=== PATIENT | female | born 1995 | race Hispanic/Latino ===

== ENCOUNTER 2018-07-23 14:10 | Observation (INO) | payer MEDICAID ==
[~2018-07-23] VITALS: Ht 157.5 cm; Wt 78.0 kg
[2018-07-23 14:59] LABS: BASOPHILS % (AUTO) 0.9 % (0.0-5.0); HEMATOCRIT 36.3 % (36-48); LYMPHOCYTES % (AUTO) 14.8 % (21.0-51.0); MEAN CORPUSCULAR HGB CONC 33.8 g/dL (32.0-36.0); MEAN CORPUSCULAR VOLUME 88.7 fL (79-99); MONOCYTES % (AUTO) 7.8 % (3.0-13.0); NEUTROPHILS % (AUTO) 75.5 % (40.0-77.0); PLATELET COUNT (AUTO) 294 K/uL (130-400); RED BLOOD CELL COUNT(AUTO) 4.09 MIL/uL (4.00-5.50); RED CELL DISTRIBUTION WIDTH 14.2 % (11.0-15.5); WHITE BLOOD COUNT (AUTO) 9.7 K/uL (4.8-10.8)
[2018-07-23 15:06] LABS: APPEARANCE,URINE Clear (CLEAR); BILIRUBIN,URINE Negative (NEGATIVE); COLOR,URINE Yellow (YELLOW); GLUCOSE, URINE (UA) Negative (NEGATIVE); KETONES,URINE Negative (NEGATIVE); LEUKOCYTE ESTERASE ,URINE Moderate (NEGATIVE); NITRATE,URINE Negative (NEGATIVE); OCCULT BLOOD,URINE Negative (NEGATIVE); PROTEIN,URINE POS 2+ (NEGATIVE)
[2018-07-23 15:09] LABS: INR 0.85 (0.85-1.15); PARTIAL THROMBOPLASTIN TIME 27.2 SEC (26.3-35.5)
[2018-07-23 15:13] LABS: CREATININE 0.8 mg/dL (0.5-1.5); POTASSIUM 4.1 mmol/L (3.5-5.1)
[2018-07-23 15:15] LABS: ALBUMIN 2.5 g/dL (3.5-5.0); BILIRUBIN,TOTAL 0.1 mg/dL (0.2-1.0); TOTAL PROTEIN, SERUM 6.5 g/dL (6.0-8.3); URIC ACID 5.5 mg/dL (2.6-7.2)
[2018-07-23 15:22] LABS: BACTERIA,URINE Few /HPF (None Seen)
[2018-07-23 15:23] LABS: RBC,URINE None Seen /HPF (0-1); YEAST,URINE BUDDING Rare /HPF (None Seen)
[2018-07-23 15:26] LABS: MUCUS,URINE Few LPF (None Seen); SQUAMOUS EPITHELIAL CELL,UR 30-50 /HPF (0-2); TRANSITIONAL EPI CELLS,URINE Few /HPF (None Seen)
[2018-07-23] MEDS ORDERED: LACTATED RINGERS 1000ML 1,000 ML IV ONE (23:50)
[2018-07-24] MEDS ORDERED: ACETAMINOPHEN EXTRA STRENGTH 500 MG TABLET PO PRN (03:45)
[2018-07-24] MEDS ORDERED: ACETAMINOPHEN EXTRA STRENGTH 500 MG TABLET ONE (04:28)
[2018-07-24 16:36] LABS: COLLECTION PERIOD,URINE 24 HR; TOTAL VOLUME 24HRS,URINE 3400 mL; TPROTEIN TIMED,URINE 25 mg/dL; TPROTEIN U,24HR CALC 850 mg/24HR (0-165)
[2018-07-24 16:49] LABS: CREATININE 0.6 mg/dL (0.5-1.5)
[2018-07-24 16:54] LABS: CREATININE,SERUM FOR CRCL 0.6 mg/dL (0.6-1.3)
[2018-07-27 07:29] LABS: HEPATITIS Bs ANTIGEN SCREEN P Negative (Negative)
== END 2018-07-24 18:40 | disposition home or self-care (01) ==
LOC: LDH 14:10
PROVIDERS: ADMIT Obstetrics & Gynecology; ATTEND Obstetrics & Gynecology
DX: O13.3 Gestational [pregnancy-induced] hypertension without significant proteinuria, third trimester (principal); O26.893 Other specified pregnancy related conditions, third trimester; M54.5 Low back pain; R60.1 Generalized edema; M25.572 Pain in left ankle and joints of left foot; Z3A.37 37 weeks gestation of pregnancy
CPT/HCPCS: 36415 ×2; 76819 ×2; 80053; 81001; 82565; 82575; 84156; 84550; 85025; 85384; 85610; 85730; 86592; 86850; 86900; 86901; 87340 ×2; 93971; G0378 ×29; J7120

== ENCOUNTER 2018-07-25 18:26 | Observation (INO) | payer MEDICAID ==
[~2018-07-25] VITALS: Ht 157.5 cm; Wt 78.9 kg
[2018-07-25 19:07] LABS: APPEARANCE,URINE Clear (CLEAR); BILIRUBIN,URINE Negative (NEGATIVE); COLOR,URINE Yellow (YELLOW); GLUCOSE, URINE (UA) Negative (NEGATIVE); KETONES,URINE Negative (NEGATIVE); LEUKOCYTE ESTERASE ,URINE Moderate (NEGATIVE); NITRATE,URINE Negative (NEGATIVE); OCCULT BLOOD,URINE Negative (NEGATIVE); PH,URINE 6.5 (5.0-8.0); PROTEIN,URINE POS 2+ (NEGATIVE)
[2018-07-25 20:03] LABS: AMPHET/METH SCREEN,URINE NEGATIVE (NEGATIVE); BARBITURATE SCREEN, URINE NEGATIVE (NEGATIVE); BENZODIAZEPINES SCREEN,URINE NEGATIVE (NEGATIVE); CANNABINOID SCREEN,URINE NEGATIVE (NEGATIVE); COCAINE SCREEN,URINE NEGATIVE (NEGATIVE); OPIATE SCREEN,URINE NEGATIVE (NEGATIVE); PHENCYCLIDINE SCREEN,URINE NEGATIVE (NEGATIVE)
[2018-07-25 20:09] LABS: BACTERIA,URINE Few /HPF (None Seen); MUCUS,URINE Rare LPF (None Seen); RBC,URINE 0-1 /HPF (0-1); SQUAMOUS EPITHELIAL CELL,UR Moderate /HPF (0-2)
[2018-07-25 20:37] VITALS: BP 118/65
[2018-07-25] MEDS: LACTATED RINGERS 1000ML 1,000 ML IV SCH (20:37)
[2018-07-26 06:51] LABS: BASOPHILS % (AUTO) 0.3 % (0.0-5.0); EOSINOPHILS % (AUTO) 1.7 % (0.0-8.0); LYMPHOCYTES % (AUTO) 17.8 % (21.0-51.0); MEAN CORPUSCULAR HEMOGLOBIN 30.3 pg (27.0-33.0); MEAN CORPUSCULAR HGB CONC 33.9 g/dL (32.0-36.0); MEAN CORPUSCULAR VOLUME 89.3 fL (79-99); MONOCYTES % (AUTO) 8.8 % (3.0-13.0); NEUTROPHILS % (AUTO) 71.4 % (40.0-77.0); PLATELET COUNT (AUTO) 240 K/uL (130-400); RED CELL DISTRIBUTION WIDTH 14.2 % (11.0-15.5); WHITE BLOOD COUNT (AUTO) 9.4 K/uL (4.8-10.8)
[2018-07-26 07:02] LABS: CREATININE 0.6 mg/dL (0.5-1.5)
[2018-07-26 07:08] LABS: ALBUMIN 2.2 g/dL (3.5-5.0); BILIRUBIN,TOTAL 0.2 mg/dL (0.2-1.0); TOTAL PROTEIN, SERUM 5.7 g/dL (6.0-8.3)
[2018-07-26 07:21] LABS: INR 0.86 (0.85-1.15); PARTIAL THROMBOPLASTIN TIME 25.1 SEC (26.3-35.5); PROTHROMBIN TIME 9.1 SEC (9.6-11.6)
[2018-07-26] MEDS ORDERED: CEFTRIAXONE SODIUM 1 GM IVP SCH (08:30)
[2018-07-26] MEDS: LACTATED RINGERS 1000ML 1,000 ML IV SCH (08:50)
[2018-07-27 10:20] LABS: HEPATITIS Bs ANTIGEN SCREEN P Negative (Negative)
[2018-07-29] MEDS ORDERED: PREN-61 PO (03:48)
== END 2018-07-26 10:30 | disposition home or self-care (01) ==
LOC: EDH 18:26 → LDH 18:27
PROVIDERS: ADMIT Obstetrics & Gynecology; ATTEND Obstetrics & Gynecology
DX: O26.893 Other specified pregnancy related conditions, third trimester (principal); R03.0 Elevated blood-pressure reading, without diagnosis of hypertension; Z3A.37 37 weeks gestation of pregnancy; Z79.01 Long term (current) use of anticoagulants; Z79.899 Other long term (current) drug therapy
CPT/HCPCS: 36415; 76805; 76819; 80053; 80305; 81001; 84550; 85025; 85384; 85610; 85730; 86592; 87340; 96374; 99284; A4218; G0378 ×16; J0696; J7120 ×2; 96360; 96361; 96372

== ENCOUNTER 2018-07-27 11:08 | Inpatient (IN) | payer OTHER, MEDICAID | END 2018-07-30 16:55 | disposition home or self-care (01) | LOC: LDH 11:08 → WSH 07-28 22:00 | PROC: 10D00Z1 Extraction of Products of Conception, Low, Open Approach (ICD-10-PCS; principal; 2018-07-28 17:20) | DX: O13.4 Gestational [pregnancy-induced] hypertension without significant proteinuria, complicating childbirth (principal); Z37.0 Single live birth; Z3A.37 37 weeks gestation of pregnancy; O33.9 Maternal care for disproportion, unspecified ==

== ENCOUNTER 2023-03-10 12:49 | Emergency (ER) | payer MEDICAID, OTHER ==
[~2023-03-10] VITALS: Ht 157.5 cm; Wt 78.0 kg
[~2023-03-10 12:49] MED LIST: CEPH500B PO; PREN-61 PO
[2023-03-10] MEDS ORDERED: MORPHINE 4 MG SYG IVP ONE (14:30)
[2023-03-10] MEDS ORDERED: ONDANSETRON 4MG INJ IVP ONE (14:30)
[2023-03-10] MEDS ORDERED: LACTATED RINGERS 1000ML 1,000 ML IV ONE (14:30)
[2023-03-10 14:36] LABS: BASOPHILS # (AUTO) 0.03 K/uL (0.00-0.20); BASOPHILS % (AUTO) 0.3 % (0.0-5.0); EOSINOPHILS # (AUTO) 0.14 K/uL (0.00-0.70); EOSINOPHILS % (AUTO) 1.5 % (0.0-8.0); HEMATOCRIT 42.9 % (36-48); IMMATURE GRANULOCYTE ABSOLUTE 0.05 K/uL (0-1); LYMPHOCYTES # (AUTO) 1.7 K/uL (1.0-4.8); LYMPHOCYTES % (AUTO) 18.2 % (21.0-51.0); MEAN CORPUSCULAR HEMOGLOBIN 28.7 pg (27.0-33.0); MEAN CORPUSCULAR VOLUME 84.4 fL (79-99); MONOCYTES # (AUTO) 0.7 K/uL (0.1-1.0); MONOCYTES % (AUTO) 7.3 % (3.0-13.0); NEUTROPHILS # (AUTO) 6.6 K/uL (1.8-7.7); NEUTROPHILS % (AUTO) 72.2 % (40.0-77.0); PLATELET COUNT (AUTO) 342 K/uL (130-400); RED BLOOD CELL COUNT(AUTO) 5.08 MIL/uL (4.00-5.50); RED CELL DISTRIBUTION WIDTH 13.7 % (11.0-15.5); WHITE BLOOD COUNT (AUTO) 9.2 K/uL (4.8-10.8)
[2023-03-10 14:43] LABS: APPEARANCE,URINE CLEAR (CLEAR); BILIRUBIN,URINE NEGATIVE (NEGATIVE); COLOR,URINE LIGHT-YELLOW (YELLOW); GLUCOSE, URINE (UA) NEGATIVE (NEGATIVE); KETONES,URINE NEGATIVE (NEGATIVE); LEUKOCYTE ESTERASE ,URINE NEGATIVE Leu/uL (NEGATIVE); NITRATE,URINE NEGATIVE (NEGATIVE); OCCULT BLOOD,URINE NEGATIVE (NEGATIVE); PROTEIN,URINE NEGATIVE (NEGATIVE); UROBILINOGEN,URINE 0.2 mg/dL (0.2-1.0)
[2023-03-10 14:44] LABS: ADD UA MICROSCOPIC YES
[2023-03-10 14:46] LABS: BACTERIA,URINE RARE /HPF (None Seen); HCG,QUALITATIVE URINE NEGATIVE (NEGATIVE); MUCUS,URINE RARE LPF (None Seen); SQUAMOUS EPITHELIAL CELL,UR RARE /HPF (0-2); WBC,URINE 0-1 /HPF (0-1)
[2023-03-10 14:51] LABS: CREATININE 0.7 mg/dL (0.5-1.5)
[2023-03-10 14:56] LABS: ALBUMIN 4.4 g/dL (3.5-5.0); BILIRUBIN,TOTAL 0.5 mg/dL (0.2-1.0); TOTAL PROTEIN, SERUM 8.1 g/dL (6.0-8.3)
[2023-03-10] MEDS ORDERED: IOHEXOL 350 MG/ML 100ML INFUS..BTL IV ONE (16:29)
[2023-03-10] MEDS ORDERED: HYDR-4060 PO (20:06)
[2023-03-10] MEDS ORDERED: ONDA4TAB10 PO (20:06)
[2023-03-10 20:56] VITALS: BP 122/71; PULSE 94; RESP 16; O2SAT 96
== END 2023-03-10 21:03 | disposition home or self-care (01) ==
LOC: EDH 12:49
DX: R10.11 Right upper quadrant pain (principal)
CPT/HCPCS: 99285; 74177; 96374; 76705; 96361; 96375; 80053; 83690; 85025; 81001; 81025; 36415; J7120; J2405; J2270; Q9967

== ENCOUNTER 2023-10-11 10:01 | Emergency (ER) | payer OTHER ==
[~2023-10-11] VITALS: Ht 157.5 cm; Wt 75.7 kg
[~2023-10-11 10:01] MED LIST changes: +HYDR-4060 PO; +ONDA4TAB10 PO
[2023-10-11 10:02] VITALS: BP 138/67; PULSE 88; RESP 16
[2023-10-11] MEDS ORDERED: IBUP-2077 PO (10:25)
[2023-10-11] MEDS ORDERED: CYCL10TA16 PO (10:25)
[2023-10-11] MEDS: SOLU-MEDROL 125MG VIAL IM ONE (10:29)
[2023-10-11] MEDS: CYCLOBENZAPRINE HCL 10 MG TABLET PO ONE (10:29)
[2023-10-11] MEDS: IBUPROFEN 800 MG TAB PO ONE (10:29)
== END 2023-10-11 11:24 | disposition home or self-care (01) ==
LOC: EDH 10:01
DX: S39.012A Strain of muscle, fascia and tendon of lower back, initial encounter (principal); X50.9XXA Other and unspecified overexertion or strenuous movements or postures, initial encounter; Y93.89 Activity, other specified; Y92.89 Other specified places as the place of occurrence of the external cause; Y99.8 Other external cause status
CPT/HCPCS: 99283; 96372; J2919